=== PATIENT | female | born 1975 | race Caucasian/White ===

== ENCOUNTER → 2016-11-01 | Day surgery (SDC) | payer OTHER ==
[2016-10-25 09:02] VITALS: BMI 42.0
--- NOTE | 2016-10-25 09:27 | PAT Medication Instructions ---
Service Date October 25, 2016. Current Home Medication List Atenolol (Tenormin), 100 MG PO QPM Furosemide (Lasix), 10 MG PEG PRN Ibuprofen (Motrin), 800 MG PO Q8HR PRN Levothyroxine Sodium (Levothyroxine Sodium), 1 TAB PO QPM Valacyclovir (Valtrex), 500 MG PO PRN Medication Instructions For Your Scheduled Surgery - Check with surgeon for instructions: Ibuprofen (Motrin), 800 MG PO Q8HR PRN - Hold the following medications the morning of surgery: Furosemide (Lasix), 10 MG PEG PRN - Take the following medications the morning of surgery with a sip of water: Valacyclovir (Valtrex), 500 MG PO PRN - Take the following medications as scheduled the night before surgery: Furosemide (Lasix), 10 MG PEG PRN Atenolol (Tenormin), 100 MG PO QPM Levothyroxine Sodium (Levothyroxine Sodium), 1 TAB PO QPM Valacyclovir (Valtrex), 500 MG PO PRN If you have any questions please call us at [phone] (Shruti Gonsalves PA-C) or [phone] or [phone]
[~2016-11-01] VITALS: Ht 172.7 cm; Wt 126.3 kg
[~2016-11-01] MED LIST: ATEN-175 PO; ATROPINE SULFATE 0.1 MG/ML 5ML SYR IV PRN; BUPIVACAINE 0.5 % 5 MG/1 ML MPF 30ML VIAL ONE; CEFAZOLIN 3000 MG/65 ML D5W 65 ML IV SCH; CEFAZOLIN SOD 1 GM VIAL ONE; CONRAY 60% 50 ML VIAL ONE; DEXAMETHASONE SOD INJ 4 MG/ML VIAL ONE; DiphenhydrAMINE HCL 50 MG/ML VIAL ONE; EpHEDrine SULFATE INJ 50 MG/ML AMP IV PRN; FENTANYL CITRATE INJ 50 MCG/1 ML 2 ML VIAL ONE; FURO20TA PO; GLYCOPYRROLATE INJ 0.2 MG/ML VIAL ONE; HEPARIN SOD (PORCINE) 1000 UNIT/ML 10 ML VIAL ONE; HYDROmorphone INJ 2 MG/ML SYR/VIAL IV PRN; IBUP-1428 PO; LACTATED RINGER'S 1000ML 1,000 ML IV SCH; LEVO100T7 PO; LIDOCAINE HCL 2% 2 ML VIAL (20MG/ML) ONE; METOCLOPRAMIDE HCL INJ 5 MG/ML 2 ML VIAL ONE; MIDAZOLAM HCL 1 MG/ML 2ML VIAL ONE; MoRPHine SULFATE 4 MG/ML 1 ML CARP\\VIAL IV PRN; NEOSTIGMINE METHYLSULFATE 5 MG/5 ML SYR ONE; ONDANSETRON INJ 2 MG/ML 2 ML VIAL IV PRN; ONDANSETRON INJ 2 MG/ML 2 ML VIAL ONE; OXYCODONE/ACETAMINOPHEN 5-325 TAB PO PRN; PHENYLEPHRINE 100MCG/ML 5ML SYR IV PRN; PROPOFOL IV EMULSION 10 MG/ML 20 ML VIAL IV ONE; ROCURONIUM BROMIDE 10 MG/ML 5 ML VIAL ONE; SODIUM CHLORIDE 0.9% 1000ML 1,000 ML IV SCH; VALA500T60 PO
[2016-11-01 07:35] VITALS: BP 138/82; PULSE 73; TEMP 36.8; O2SAT 96; Ht 172.7 cm; Wt 126.3 kg
--- NOTE | 2016-11-01 08:10 | History & Physical Bridge Note ---
H&P Re-Evaluation Bridge Note: I have examined the patient, reviewed the History & Physical and in the interval since the performance of the History & Physical I have noted the following changes of clinical significance: No changes noted
--- NOTE | 2016-11-01 09:29 | [facility] Post Operative Brief Note ---
Immediate Operative Summary Operative Date November 01, 2016. Pre-Operative Diagnosis sludge in gallbladder Post-Operative Diagnosis sludge in gallbladder Procedure(s) Performed Laparoscopic Cholecystectomy Surgeon Dr. Perry Ordonez [employer] Surgeon(s) Love Harper PA-C Estimated Blood Loss 5mL Findings See dictation Specimens A. Gallbladder Drains None Anesthesia General Complication(s) None Disposition Recovery Room / PACU
--- NOTE | 2016-11-01 09:31 | Discharge Instructions ---
Discharge Instructions Date of Service November 01, 2016. Admission Reason for Admission: Sludge In Gallbladder Discharge Discharge Diagnosis / Problem: Same Discharge Goals Goal(s): Decrease discomfort Activity Recommendations Activity Limitations: per Instructions/Follow-up section Lifting Limitations: no more than 10 pounds (for 2 weeks) Shower/Bathe: tomorrow (Shower only) . Instructions / Follow-Up Instructions / Follow-Up Post-Surgical ~ Discharge Instructions Activity Recommendations: - lifting limitation: (10 pounds for 2 weeks), - exercise/sex/sports limit: (nonstrenuous for 2 weeks), - driving or machine use limit: (none for 1 week), - Shower/bathe limit: (may shower beginning tomorrow) Diet: - Resume previous diet SPECIAL CARE INSTRUCTIONS: - May shower in 24 hours. Let water run over area and pat dry. - Leave steri strips on for one week. - Call the surgeon's office with any questions or concerns - - (ex. temperature higher than 101 degrees F, excessive bleeding or pain). MEDICATIONS: - Resume previous medications unless instructed otherwise by your surgeon. - Ibuprofen 600 mg every 6 hours with food - Percocet 1 every 4 hours, as needed for pain FOLLOW UP VISIT: - If not already scheduled, please call the office to schedule a two week follow-up appointment. Office number Current Hospital Diet Patient's current hospital diet: Discharge Diet Recommended Diet: Regular Diet Procedures Procedures Performed: Laparoscopic Cholecystectomy Pending Studies Studies pending at discharge: no Medical Emergencies . Who to Call and When: Medical Emergencies: If at any time you feel your situation is an emergency, please call 911 immediately. . Non-Emergent Contact Non-Emergency issues call your: Primary Care Provider, Surgeon Call Non-Emergent contact if: your pain is worsening, wound has increased redness, wound has increased pain . "Provider Documentation" section prepared by Perry Ordonez. . VTE Core Measure Inpt VTE Proph given/why not?: Treatment not indicated
--- NOTE | 2016-11-01 10:17 | OPERATIVE REPORT ---
DATE OF OPERATION: 11/01/2016 PREOPERATIVE DIAGNOSIS: Sludge in gallbladder. POSTOPERATIVE DIAGNOSIS: Same. PROCEDURE: Laparoscopic cholecystectomy. SURGEON: Dr. Ordonez. DESIGNER/WRITER: Sabrina Harper PA-C. 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 These adhesions were flimsy and were easily taken down. That allowed me then access to the right upper quadrant in the gallbladder. There were adhesions of the omentum to the gallbladder and to the right lobe of the liver just lateral to the gallbladder. These were taken down. The gallbladder was not dilated. The cystic duct was of normal size and contour. The liver was of normal size and contour. The visible bowel appeared normal. TECHNIQUE: The patient was given a general anesthetic, and the area was prepped and draped in the usual sterile fashion. Transverse incision was made below the umbilicus, carried down through the subcutaneous tissue to the fascia which was grasped with 2 Krista clamps and incised between. The peritoneum was identified, incised, and the introducer was placed bluntly. The abdomen was then insufflated to a pressure of 15 mmHg with carbon dioxide. The upper midline introducer was placed under direct vision through small skin incision. The adhesions to the anterior abdominal wall were taken down using sharp and cautery dissection. That allowed me access to the right upper quadrant with ease. The midclavicular and anterior axillary introducers were placed under direct vision through small skin incisions. Traction was placed on the gallbladder and the adhesions of the omentum to the right lobe of the liver just lateral to the gallbladder were taken down using cautery. That allowed me to elevate the gallbladder further and take down adhesions over the infundibulum. There was some traction upward on the duodenum to the gallbladder and those adhesions were taken down using blunt dissection without cautery. That allowed me access to the infundibulum. Beginning on the lateral side of the infundibulum, the peritoneum was opened and peeled down toward the common bile duct. The infundibulum was dissected away from the liver on that side. I then opened the peritoneum and entered the triangle of Calot and dissected the gallbladder away from the liver on that side, allowing for more mobility. That allowed me to identify the cystic duct. I had to isolate the cystic duct, peeling connective tissue and lymphatics off the medial side, but then was able to establish a plane behind the cystic duct and confirmed the position of the cystic duct--gallbladder junction. Three clips were placed on the proximal cystic duct, one near the junction with the gallbladder and it was divided. Further dissection was then carried out posterior to that area in the triangle of Calot. The cystic artery was identified. It was isolated, clamped 3 times proximally and once near the gallbladder and divided. There was lymphatic tissue lateral to that which was also clamped and divided. Further dissection of the gallbladder away from the liver was performed. There was a posterior branch of the artery that was encountered, that was clamped and divided. The gallbladder dissection off the liver was then completed. The gallbladder was placed into an Endobag and brought out through the upper midline incision. That introducer was replaced and the liver edge was elevated. The subdiaphragmatic and subhepatic spaces were irrigated and the irrigation removed. The gallbladder bed of the liver was inspected and there was no bleeding. The previously placed clips were intact. The omentum was inspected where it had been dissected off the anterior abdominal wall and there was no bleeding. The gas was allowed to escape and the introducers were removed. The fascia of the umbilical introducer site was closed with interrupted 0 Vicryl and the skin of all the incisions was closed with 4-0 Monocryl in either an interrupted or running subcuticular fashion. The skin was anesthetized with 0.5% Marcaine. The skin was cleansed, dried, benzoin placed, Steri-Strips applied. Estimated blood loss was 5 mL. Sponge, needle and instrument counts were correct prior to closure. The patient tolerated the surgical procedure without complication and was transferred to recovery. I attest to the content of the Intraoperative Record and any orders documented therein. Any exceptio ns are noted below.
--- NOTE | 2016-11-01 10:25 | Anesthesiology Progress Note ---
Anesthesia Post Op Note Date & Time November 01, 2016 at 10:25 Vital Signs Pain Intensity: 0 Vital Signs Past 12 Hours Date Time Temp Pulse Resp B/P Pulse Ox O2 Delivery O2 Flow Rate FiO2 11/01/16 10:15 37.4 59 14 140/88 100 Room Air 11/01/16 10:05 59 14 157/73 100 Room Air 11/01/16 09:55 59 14 148/84 100 10 11/01/16 09:45 63 14 144/91 100 10 11/01/16 09:39 36.9 73 14 148/95 100 10 11/01/16 07:35 36.8 73 18 138/82 96 Room Air Notes Mental Status: alert / awake / arousable, participated in evaluation Pt Amnestic to Procedure: Yes Nausea / Vomiting: adequately controlled Pain: adequately controlled Airway Patency, RR, SpO2: stable & adequate BP & HR: stable & adequate Hydration State: stable & adequate Anesthetic Complications: no major complications apparent
[2016-11-01 10:40] VITALS: BP 133/66; PULSE 78; TEMP 36.6; O2SAT 93
[2016-11-01 11:11] VITALS: BP 112/73; PULSE 78; TEMP 36.6; O2SAT 98
[2016-11-01 11:40] VITALS: BP 122/73; PULSE 77; TEMP 36.6; O2SAT 98
== END | disposition home or self-care (01) ==
LOC: C.ACU 07:06
PROVIDERS: ATTEND Surgery
DX: K82.8 Other specified diseases of gallbladder (principal); K66.0 Peritoneal adhesions (postprocedural) (postinfection); K21.9 Gastro-esophageal reflux disease without esophagitis; I10 Essential (primary) hypertension; Z90.710 Acquired absence of both cervix and uterus